=== PATIENT | female | born 1955 | race Caucasian/White ===

== ENCOUNTER 2016-07-26 18:10 | Inpatient (IN) ==
--- NOTE | 2016-07-26 19:25 | Emergency Department Note ---
Disposition Clinical Impression: Small bowel obstruction Crohns disease Qualifiers: Gastrointestinal tract location: small intestine Digestive disease complication type: unspecified complication Qualified Code(s): K50.019 - Crohn' s disease of small intestine with unspecified complications Disposition: Admitted As Inpatient Condition: Fair Referrals: Olu Mata DO [Primary Care Provider] - Forms: Work/School Release, ED Satisfaction Letter Time of Disposition: 21:02 Abdominal Pain HPI - General Chief Complaint: ED Abdominal Pain Stated Complaint: LLQ abdominal pain, vomiting Time Seen by Provider: 07/26/16 19:21 Source: patient Mode of arrival: ambulatory Limitations: no limitations Nursing Notes Reviewed: Yes Vital Signs Reviewed: Yes - History of Present Illness HPI Narrative: 61-year-old female history of Crohn's disease, takes Humira, also is a previous hemicolectomy, with no colostomy bag, this was done in the , patient states with severe left lower quadrant pain 9 out of 10, crampy and nonradiating. This started about an hour ago. Patient states that she has not had any relief of her symptoms, she has been obstipated since yesterday. Patient denies fever chills, she states that she lost and hospitalized for a C. difficile infection requiring fecal transplantation approximately 3 or 4 years ago, patient denies dysuria hematuria, has a history of cholecystectomy, total hysterectomy, appendectomy. colectomy. Pt Subjective Complaint: abdominal pain Onset (ago): day(s) (1) Consistency: Worsening Location: diffuse, LLQ Pain Severity: severe Pain Scale: 8 Quality: cramping, aching Radiation: none Migration to: no migration Improves with: nothing Associated symptoms: Reports: nausea, vomiting, constipation (obstipation). Denies: diarrhea, fever, chills Treatments prior to arrival: none - Related Data Home Medications Medication Instructions Recorded Confirmed Adalimumab [Humira] 40 mg SQ Q2W 07/26/16 07/26/16 Aspirin Enteric Coated [Aspirin EC] 81 mg PO DAILY 07/26/16 07/26/16 Calcium Carbonate [Tums] 1,000 mg PO Q4HR PRN 07/26/16 07/26/16 Calcium Crb,Cit/D3/Min34/Noemí 2 each PO DAILY 07/26/16 07/26/16 [Citracal + Bone Density Tablet] Cholecalciferol (D-3) [Vitamin D] 1,000 unit PO DAILY 07/26/16 07/26/16 Cyanocobalamin (Vitamin B-12) 500 mcg PO DAILY 07/26/16 07/26/16 [Vitamin B-12] FLUoxetine HCl [PROzac] 30 mg PO HS 07/26/16 07/26/16 L. Acidophilus/Pectin, [place] 1 each PO DAILY 07/26/16 07/26/16 [Acidophilus Probiotic Capsule] Loperamide [Imodium] 2 mg PO HS 07/26/16 07/26/16 Multivitamin [Multi-Day Vitamins] 1 each PO DAILY 07/26/16 07/26/16 Ranitidine HCl [Acid Laboratory Tester] 150 mg PO HS 07/26/16 07/26/16 Vitamin B Complex [B Complex] 1 each PO DAILY 07/26/16 07/26/16 Allergies Allergy/AdvReac Type Severity Reaction Status Date / Time Sulfa (Sulfonamide Allergy Hives Verified 07/26/16 18:32 Antibiotics) All systems ED: reviewed and negative except as stated. Constitutional: Denies: fever, chills, weakness Cardiovascular: Denies: chest pain, palpitations Respiratory: Denies: cough, dyspnea Gastrointestinal: Reports: as per HPI, abdominal pain, nausea, vomiting Genitourinary: Denies: urgency, dysuria Musculoskeletal: Denies: back pain, neck pain Integumentary: Denies: rash, abrasion Neurological: Denies: headache, weakness Abdominal Pain PMH - Past Medical History Medical history: Reports: kidney stones Female Surgical History: Reports: Adenoidectomy, cholecystectomy, hysterectomy, Tonsillectomy, other FORENSIC MANAGER history: Reports: no FORENSIC MANAGER history Psychiatric history: Reports: depression - Social History Smoking status: Never smoker Alcohol use: Reports: none Drug use: Reports: none Physical Exam Constitutional: vital signs reviewed and wnl, patient looks moderately uncomfortable HEENT: NCAT, sclera anicteric, PERRLA bilaterally, normal external ears bilaterally, nasal septum nondeviated, average dentition, MMM Neck: normal inspection, neck is supple, trachea midline Resp: normal chest inspection, CTA bilaterally, no resp distress CV: RRR, no m/g/r GI: Moderate to severe LLQ tenderness to palpation, hypoactive bowel sounds, no peritoneal signs Back: normal inspection, no tenderness to palpation Neuro: A&O3, no gross motor or sensory deficits bilaterally MSK: normal inspection, bilateral UE and LE with normal ROM Skin: No rashes, skin warm, dry, intact - General Limitations: no limitations General appearance: alert, in no apparent distress Course Course Narrative: 61-year-old female with Crohn's disease, also has a previous colectomy, presenting with left lower quadrant pain, and obstipation 1 day, patient states that she has had symptoms like this before and has previous he had obstructions been in several years. As an concern for obstruction we will CT scan of abdomen without contrast basic lab work IV fluids and analgesics, antiemetics CBC BMP lactate, - Reevaluation(s) Reevaluation #1: I reevaluated the patient, she still is moderate pain however it is improved after morphine and Dilaudid, her CT scan shows evidence of small bowel obstruction with questionable transition point, we will place an NG tube to decompress the bowel place assessment lower nontender wall suction her lactate was not elevated, she will mild leukocytosis of 15.6, plan to admit to medicine service for decompression, questionable surgical consultation per hospitalist recgurvinder. Time: 21:01 - Consultations Consultation #1: Sergio consulted in ED, agrees with plan NG decompression, patient HD stable, she will eval in AM. Time: 21:40 Vital Signs Temperature 99.0 F 07/26/16 18:32 Pulse Rate 87 07/26/16 18:32 Respiratory Rate 16 07/26/16 18:32 Blood Pressure 137/93 07/26/16 18:32 O2 Sat by Pulse Oximetry 97 07/26/16 18:32 Temperature 99.0 F 07/26/16 18:32 Pulse Rate 82 07/26/16 19:37 Respiratory Rate 16 07/26/16 19:37 Blood Pressure 129/95 07/26/16 19:37 O2 Sat by Pulse Oximetry 97 07/26/16 19:37 Oxygen Delivery Oxygen Delivery Room Air Abdominal Pain - Differential Diagnosis Differential Diagnosis: Likely: abdominal pain non-specific, acute appendicitis - Medical Records Medical records reviewed: Yes I reviewed the patient's medical records. - Lab Data Lab results reviewed: Yes I reviewed the patient's lab results. Result diagrams: 07/26/16 19:37 07/26/16 19:37 Lab Results 07/26/16 07/26/16 07/26/16 Range/Units 19:27 19:37 19:37 WBC 15.6 H (4.3-11.1) K/mcL RBC 5.03 H (3.82-4.97) M/mcL Hgb 15.0 (11.5-15.4) g/dL Hct 44.3 (35.3-44.9) % MCV 88.1 (83.0-100.0) fL MCH 29.8 (28.0-33.3) pg MCHC 33.9 (31.6-35.5) g/dL RDW 12.7 (11.5-14.5) % Plt Count 365 (140-400) K/mcL MPV 10.7 (9.4-12.4) fL Immature Gran % 0.4 (0-4) % Seg Neutrophils % 72.0 % Lymphocytes % 21.2 % Monocytes % 5.4 % Eosinophils % 0.6 % Basophils % 0.4 % Neutrophils # 11.2 H (1.6-8.9) K/mcL Lymphocytes # 3.3 (0.6-4.6) K/mcL Monocytes # 0.8 (0.0-1.3) K/mcL Eosinophils # 0.1 (0.0-0.6) K/mcL Basophils # 0.1 (0.0-0.2) K/mcL Sodium 141 (136-145) mEq/L Potassium 4.2 (3.5-4.5) mEq/L Chloride 101 (98-109) mEq/L Carbon Dioxide 26 (19-29) mEq/L BUN 13 (7-20) mg/dL Creatinine 0.82 (0.57-1.11) mg/dL Est GFR ( Amer) > 60 (> 60) Est GFR (Non-Af Amer) > 60 (> 60) BUN/Creatinine Ratio 16 (6-26) Glucose 118 H (70-99) mg/dL Calculated Osmolality 293 (280-300) Lactic Acid (0.5-2.2) mmol/L Calcium 10.3 (8.6-10.8) mg/dL Total Bilirubin 0.7 (0.2-1.2) mg/dL Direct Bilirubin 0.3 (0.0-0.5) mg/dL Indirect Bilirubin 0.4 (0.0-1.2) mg/dL AST 27 (5-34) Units/L ALT 26 (0-55) Units/L Alkaline Phosphatase 67 (38-126) Units/L Serum Total Protein 8.3 (6.0-8.3) g/dL Albumin 4.0 (3.5-5.0) g/dL Globulin 4.3 H (2.4-3.5) g/dL Albumin/Globulin Ratio 0.9 L (1.1-2.2) Amylase 76 (25-125) Units/L Lipase 16 (8-78) Units/L Urine Color Yellow (Yellow) Urine Clarity Hazy A (Clear) Urine pH 7.0 (5.0-8.0) pH Units Ur Specific [place] 1.019 (1.010-1.025) Urine Protein Negative (Neg-Trace) mg/dL Urine Glucose (UA) Normal (Normal) mg/dL Urine Ketones Negative (Negative) mg/dL Urine Blood Negative (Negative) Urine Nitrite Negative (Negative) Urine Bilirubin Negative (Negative) Urine Urobilinogen Normal (Normal) mg/dL Ur Leukocyte Esterase Trace H (Negative) Urine Microscopic RBC 0-3 (0-3) per hpf Urine Microscopic WBC 0-3 (0-3) per hpf Ur Squamous Epith Cells Moderate H (None-Few) per lpf Urine Bacteria None Seen (None-Few) per hpf Hyaline Casts None Seen (None-Few) per lpf Ur Culture Indicated? YES A (NO) 07/26/16 Range/Units 19:55 WBC (4.3-11.1) K/mcL RBC (3.82-4.97) M/mcL Hgb (11.5-15.4) g/dL Hct (35.3-44.9) % MCV (83.0-100.0) fL MCH (28.0-33.3) pg MCHC (31.6-35.5) g/dL RDW (11.5-14.5) % Plt Count (140-400) K/mcL MPV (9.4-12.4) fL Immature Gran % (0-4) % Seg Neutrophils % % Lymphocytes % % Monocytes % % Eosinophils % % Basophils % % Neutrophils # (1.6-8.9) K/mcL Lymphocytes # (0.6-4.6) K/mcL Monocytes # (0.0-1.3) K/mcL Eosinophils # (0.0-0.6) K/mcL Basophils # (0.0-0.2) K/mcL Sodium (136-145) mEq/L Potassium (3.5-4.5) mEq/L Chloride (98-109) mEq/L Carbon Dioxide (19-29) mEq/L BUN (7-20) mg/dL Creatinine (0.57-1.11) mg/dL Est GFR ( Amer) (> 60) Est GFR (Non-Af Amer) (> 60) BUN/Creatinine Ratio (6-26) Glucose (70-99) mg/dL Calculated Osmolality (280-300) Lactic Acid 1.4 (0.5-2.2) mmol/L Calcium (8.6-10.8) mg/dL Total Bilirubin (0.2-1.2) mg/dL Direct Bilirubin (0.0-0.5) mg/dL Indirect Bilirubin (0.0-1.2) mg/dL AST (5-34) Units/L ALT (0-55) Units/L Alkaline Phosphatase (38-126) Units/L Serum Total Protein (6.0-8.3) g/dL Albumin (3.5-5.0) g/dL Globulin (2.4-3.5) g/dL Albumin/Globulin Ratio (1.1-2.2) Amylase (25-125) Units/L Lipase (8-78) Units/L Urine Color (Yellow) Urine Clarity (Clear) Urine pH (5.0-8.0) pH Units Ur Specific [place] (1.010-1.025) Urine Protein (Neg-Trace) mg/dL Urine Glucose (UA) (Normal) mg/dL Urine Ketones (Negative) mg/dL Urine Blood (Negative) Urine Nitrite (Negative) Urine Bilirubin (Negative) Urine Urobilinogen (Normal) mg/dL Ur Leukocyte Esterase (Negative) Urine Microscopic RBC (0-3) per hpf Urine Microscopic WBC (0-3) per hpf Ur Squamous Epith Cells (None-Few) per lpf Urine Bacteria (None-Few) per hpf Hyaline Casts (None-Few) per lpf Ur Culture Indicated? (NO) - Radiology Data Radiology results reviewed: Yes I reviewed the patient's radiology results. Abdomen/Pelvis CT 07/26/16 19:38 IMPRESSION: Multiple dilated loops of small bowel with air-fluid levels and a possible transition point in the right lower quadrant, near bowel anastomotic sutures, concerning for a mechanical small bowel obstruction. The colon is decompressed with scattered areas of wall submucosal fat deposition. Submucosal fat deposition can be an incidental finding versus sequela of chronic colonic inflammation. Otherwise no evidence of acute colonic abnormality. D/ : / 07/26/2016 20:44:11 Ernesto Shankar MD / Evelyn Drew Interpreting Provider: Ernesto Shankar MD - EKG Data EKG attestation: Yes I reviewed and interpreted this EKG. EKG shows normal: sinus rhythm (77 bpm IN [address] segment elevations or depressions) Rate: normal Rhythm: NSR Interpretation: no acute changes - Core Measures AMI Core Measures Followed: No Measure Exclusions: not indicated Attestation Statement - Attestation Attestation: I examined this patient and my medical decision-making was reviewed with the TRANSPORTATION MANAGER/PA/Advanced Practice Nurse/Resident Physician. I agree with the documented findings, disposition and treatment plan as described except to the extent set forth below. [id number] time provided Lower quadrant abdominal pain. History of Crohn's. Uncomfortable appearing on exam
[2016-07-26] MEDS ORDERED: Ondansetron 4 MG/2 ML VIAL IVP ONE ×2 (19:38→21:20)
[2016-07-26] MEDS ORDERED: *HR* Morphine 2 MG/ML SYRINGE IVP ONE (19:38)
[2016-07-26] MEDS ORDERED: 0.9 % Sodium Chloride 500 ML IVC ONE (19:39)
[2016-07-26 19:41] LABS: Bilirubin,Urine Negative (Negative); Blood,Urine Negative (Negative); Color,Urine Yellow (Yellow); Glucose,Urine (UA) Normal (Normal); Ketones,Urine Negative (Negative); Leukocyte Esterase,Urine Trace (Negative); Nitrite,Urine Negative (Negative); Protein,Urine Negative (Neg-Trace); Specific Gravity,Urine 1.019 (1.010-1.025); Urobilinogen,Urine Normal (Normal)
[2016-07-26 19:43] LABS: Bacteria,Urine None Seen per hpf (None-Few); Clarity,Urine Hazy (Clear); Hyaline Casts,Urine None Seen per lpf (None-Few); RBC,Urine 0-3 per hpf (0-3); Squamous Epithelial Cell,Urine Moderate per lpf (None-Few); WBC,Urine 0-3 per hpf (0-3)
[2016-07-26 19:46] LABS: Basophils # 0.1 K/mcL (0.0-0.2); Basophils % 0.4 %; Eosinophils # 0.1 K/mcL (0.0-0.6); Eosinophils % 0.6 %; Hematocrit 44.3 % (35.3-44.9); Immature Granulocytes % 0.4 % (0-4); Lymphocytes # 3.3 K/mcL (0.6-4.6); Lymphocytes % 21.2 %; Mean Corpuscular HGB Conc 33.9 g/dL (31.6-35.5); Mean Corpuscular Hemoglobin 29.8 pg (28.0-33.3); Mean Corpuscular Volume 88.1 fL (83.0-100.0); Mean Platelet Volume 10.7 fL (9.4-12.4); Monocytes # 0.8 K/mcL (0.0-1.3); Monocytes % 5.4 %; Neutrophils # 11.2 K/mcL (1.6-8.9); Platelet Count 365 K/mcL (140-400); Red Blood Count 5.03 M/mcL (3.82-4.97); Red Cell Distribution Width 12.7 % (11.5-14.5)
[2016-07-26 20:01] LABS: Alanine Aminotransferase 26 Units/L (0-55); Albumin/Globulin Ratio 0.9 (1.1-2.2); Alkaline Phosphatase 67 Units/L (38-126); Amylase 76 Units/L (25-125); Aspartate Amino Transferase 27 Units/L (5-34); BUN/Creatinine Ratio 16 (6-26); Bilirubin,Direct 0.3 mg/dL (0.0-0.5); Bilirubin,Indirect 0.4 mg/dL (0.0-1.2); Bilirubin,Total 0.7 mg/dL (0.2-1.2); Blood Urea Nitrogen 13 mg/dL (7-20); Calcium 10.3 mg/dL (8.6-10.8); Carbon Dioxide 26 mEq/L (19-29); Chloride 101 mEq/L (98-109); Globulin 4.3 g/dL (2.4-3.5); Glucose 118 mg/dL (70-99); Lipase 16 Units/L (8-78); Osmolality,Calculated 293 (280-300); Potassium 4.2 mEq/L (3.5-4.5); Sodium 141 mEq/L (136-145); Total Protein 8.3 g/dL (6.0-8.3); eGFR For African Americans > 60 (> 60); eGFR For Non-African Americans > 60 (> 60)
[2016-07-26] MEDS ORDERED: *HR* HYDROmorphone (PF) 1 MG/ML SYRINGE IVP ONE ×2 (20:18→21:36)
[2016-07-26] MEDS ORDERED: Ondansetron 4 MG/2 ML VIAL IVP PRN (22:04)
[2016-07-26] MEDS ORDERED: Naloxone 0.4 MG/ML INJ IVP PRN (22:04)
[2016-07-26] MEDS ORDERED: *HR* Morphine 2 MG/ML SYRINGE IVP PRN ×2 (22:06→23:58)
[2016-07-27] MEDS: *HR* Heparin 5,000 UNIT/ML VIAL SQ SCH ×3 (00:12→17:03)
[2016-07-27] MEDS ORDERED: Metoclopramide 10 MG/2 ML VIAL IVP PRN (00:40)
[2016-07-27] MEDS ORDERED: Chloraseptic Spray 177 ML BOTTLE MM PRN (00:40)
--- NOTE | 2016-07-27 00:44 | Internal Med History&Physical ---
Date of Encounter: 07/27/16 Time of Encounter: 00:42 Assessment and Plan (1) Small bowel obstruction Current visit: Yes Status: Acute Patient presents with sudden onset abdominal pain associated with nausea, vomiting and inability to pass gas and bowel movements. On exam, patient has feeble bowel sounds and tenderness to palpation diffusely. CT scan reveals small bowel obstruction. Patient admitted to inpatient status. Expected to be in the hospital for at least 2 midnights. Expected discharge disposition is to home. High risk due to risk of possible need for surgical intervention if the patient does not resolve with conservative management. Patient had NG tube placed in the emergency room which is connected to suction. Surgery has been contacted by emergency room. We will follow surgical recommendations. Continue NG to suction. Intravenous proton inhibitor and intravenous fluids. Pain control. Conservative management and monitoring closely. (2) Crohns disease Current visit: Yes Status: Chronic As mentioned above, conservative management for her bowel obstruction. Outpatient follow-up with her drip box tender for continued Humira injections. Qualifiers: Gastrointestinal tract location: small intestine Digestive disease complication type: with intestinal obstruction Qualified Code(s): K50.012 - Crohn's disease of small intestine with intestinal obstruction Internal Medicine - H&P: HPI Chief complaint: Abdominal pain Admitted From: Emergency Dept Plans for Post Hospital Care: Home History of present illness: Ms. Poole is a 61 year old female who presented to the emergency room due to abdominal pain, nausea and vomiting. Patient states that she was at her baseline health on 07/25/2016. On the night of 07/25/2016, the patient started developing abdominal pain that was 10/10 in intensity in the left side of the abdomen without any radiation that was squeezing in nature. No aggravating or relieving factors. This is associated with nausea, vomiting. Patient's last bowel movement was on 07/25/2016 at night. She states that since then, she has not had any further bowel movements or has not passed any gas. Currently, she can use to complain of 8/10 pain in the abdomen that is only resolved with Dilaudid but not with morphine. She can use to report nausea and some dry heaves currently. She denies any fever or chills. She denies any chest pain, shortness of breath, palpitations, cough or wheezing. She denies any bruising or rashes, changes in her weight or appetite recently. She is under the care of drip box tender at [facility] where she receives biweekly Humira for her Crohn's disease. Past Med Surg Social Fam HX - Past Medical History Attestation: Yes The following information was validated with the patient. Source: patient Medical history: kidney stones, other (Crohn's disease) Psychiatric history: depression - Past Surgical History Surgical History: cholecystectomy, colectomy - Social History Smoking Status: Former smoker Smokeless Tobacco Status: No Alcohol use: none Drug use: none Current living situation: Home, With Family Activity Level: Independent ambulation Recent Out of Country Travel Within the Last 8 Weeks: No Exposure or Possible Exposure to Illness During Travel: No - Additional Family History Additional family history: Reviewed; not pertinent Internal Medicine - H&P: Meds Adalimumab [Humira] 40 mg SQ Q2W 07/26/16 [History] Aspirin Enteric Coated [Aspirin EC] 81 mg PO DAILY 07/26/16 [History] Calcium Carbonate [Tums] 1,000 mg PO Q4HR PRN 07/26/16 [History] Calcium Crb,Cit/D3/Min34/Noemí [Citracal + Bone Density Tablet] 2 each PO DAILY 07/26/16 [History] Cholecalciferol (D-3) [Vitamin D] 1,000 unit PO DAILY 07/26/16 [History] Cyanocobalamin (Vitamin B-12) [Vitamin B-12] 500 mcg PO DAILY 07/26/16 [History] FLUoxetine HCl [PROzac] 30 mg PO HS 07/26/16 [History] L. Acidophilus/Pectin, [place] [Acidophilus Probiotic Capsule] 1 each PO DAILY [History] Loperamide [Imodium] 2 mg PO HS 07/26/16 [History] Multivitamin [Multi-Day Vitamins] 1 each PO DAILY 07/26/16 [History] Ranitidine HCl [Acid [employer] Lead] 150 mg PO HS 07/26/16 [History] Vitamin B Complex [B Complex] 1 each PO DAILY 07/26/16 [History] Allergies Sulfa (Sulfonamide Antibiotics) Allergy (Verified 07/26/16 18:32) Hives All Systems PM: A 10-system review of systems was performed and is negative for pertinent findings except as documented above in the HPI. Review of systems: 10 systems have been reviewed and are negative except as mentioned in the history of present illness - Constitutional Vitals: Temp Pulse Resp BP Pulse Ox 98.0 F 71 18 148/90 95 07/26/16 23:37 07/26/16 23:37 07/26/16 23:37 07/26/16 23:37 07/26/16 23:37 Exam: Gen.: Lying in bed. Moderate to severe distress. Eyes: Pupils equal, round and reactive to light. Extraocular muscles intact. ENT: Moist mucous membranes. No oropharyngeal erythema or discharge. Chest: Clear to auscultation bilaterally. No adventitious sounds present. CVS: First and second heart sounds present. No murmurs, rubs or gallops. Abdomen: Soft, diffusely tender to palpation, nondistended. Bowel sounds present but are very feeble. Skin: No decubitus ulcers appreciated. POSTAL SERVICE MAIL PROCESSOR: No focal neuro deficits present. Psychiatric: Alert, awake and oriented to time, place and person. Lymphatic system: No lymphadenopathy appreciated Internal Med - H&P Results - Labs CBC & Chem 7: 07/26/16 19:37 07/26/16 19:37 - Diagnostic Studies CT scan - abdomen Status: image reviewed by me (Multiple dilated loops of small bowel with air- fluid levels and a possible transition point in the right lower quadrant concerning for small bowel obstruction)
[2016-07-27] MEDS ORDERED: D5% in 0.9% NACL 1,000 ML IVC SCH ×2 (00:45→11:12)
[2016-07-27] MEDS: *HR* HYDROmorphone (PF) 1 MG/ML SYRINGE IVP PRN ×3 (01:45→21:23)
[2016-07-27 07:24] LABS: Basophils % 0.3 %; Hematocrit 42.6 % (35.3-44.9); Hemoglobin 14.3 g/dL (11.5-15.4); Immature Granulocytes % 0.5 % (0-4); Lymphocytes # 1.7 K/mcL (0.6-4.6); Lymphocytes % 11.1 %; Mean Corpuscular HGB Conc 33.6 g/dL (31.6-35.5); Mean Corpuscular Hemoglobin 29.8 pg (28.0-33.3); Mean Corpuscular Volume 88.8 fL (83.0-100.0); Mean Platelet Volume 11.1 fL (9.4-12.4); Monocytes # 0.4 K/mcL (0.0-1.3); Monocytes % 2.7 %; Neutrophils # 13.2 K/mcL (1.6-8.9); Platelet Count 332 K/mcL (140-400); Red Cell Distribution Width 12.7 % (11.5-14.5); Segmented Neutrophils % 85.4 %
[2016-07-27] MEDS: Pantoprazole 40 MG VIAL IVP SCH (09:23)
[2016-07-27 09:34] LABS: Alanine Aminotransferase 20 Units/L (0-55); Albumin 3.3 g/dL (3.5-5.0); Albumin/Globulin Ratio 0.8 (1.1-2.2); Alkaline Phosphatase 58 Units/L (38-126); Aspartate Amino Transferase 19 Units/L (5-34); BUN/Creatinine Ratio 22 (6-26); Bilirubin,Total 0.7 mg/dL (0.2-1.2); Blood Urea Nitrogen 18 mg/dL (7-20); Calcium 9.2 mg/dL (8.6-10.8); Carbon Dioxide 25 mEq/L (19-29); Chloride 104 mEq/L (98-109); Glucose 155 mg/dL (70-99); Osmolality,Calculated 293 (280-300); Potassium 4.3 mEq/L (3.5-4.5); Sodium 139 mEq/L (136-145); Total Protein 7.3 g/dL (6.0-8.3); eGFR For African Americans > 60 (> 60); eGFR For Non-African Americans > 60 (> 60)
[2016-07-27 10:05] LABS: Hemoglobin A1C 5.2 %
--- NOTE | 2016-07-27 11:03 | General Surgery Consult Note ---
Date of Encounter: 07/27/16 Time of Encounter: 10:45 Assessment and Plan (1) Small bowel obstruction Current Visit: Yes Status: Acute Continue with conservative measures including: Bowel rest- patient may have one cup of ice chips per shift NG tube to low intermittent wall suction IV fluids Supportive care and pain control Serial abdominal exams Surgery will continue to follow and assess patient's progress (2) Crohns disease Current Visit: Yes Status: Chronic Qualifiers: Gastrointestinal tract location: small intestine Digestive disease complication type: with intestinal obstruction Qualified Code(s): K50.012 - Crohn's disease of small intestine with intestinal obstruction (3) DVT prophylaxis Current Visit: Yes Status: Acute Continue heparin 5000 units subcutaneous 3 times a day for DVT prophylaxis History of Present Illness Consult date: 07/27/16 Reason for consult: other (SBO) Requesting physician: Nicolás Pike History of present illness: Ms. Poole is a 61 year old female who presented to the emergency department with complaints of abdominal pain with associated nausea and vomiting. She reports that she has had symptoms for the last 24 hours. She states that her abdominal pain is diffuse. Denies any aggravating or alleviating factors She denies having pain like this in the past. She admits to bloating with nausea which started yesterday morning as well. She reports multiple episodes of vomiting. Denies any hematemesis or coffee-ground emesis. She states that her last bowel movement was yesterday morning. She does report decreased caliber of her stool. She states that she typically has a bowel movement 6-8 times per day. She states she has been unable to pass flatus for the last 24 hours. She reports that this is very atypical for her. The patient does report rectal bleeding but she feels this is related to her hemorrhoids.She states that she had a colonoscopy complete [address] Keys at [facility]. 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 She denies any fevers or chills. Denies any shortness of breath or chest pain. She denies any difficulty with urination however she states that her urine is darker than typical and she is voiding less than typical for her. She states that she did have a hemicolectomy 30 years ago but denies having any major surgical intervention since that time. Past Med Surg Social Fam HX - Past Medical History Source: patient Medical history: kidney stones, other (Crohn's disease) Psychiatric history: depression - Past Surgical History Surgical History: cholecystectomy, colectomy (right hemicolectomy) - Social History Smoking Status: Former smoker Smokeless Tobacco Status: No Alcohol use: none Drug use: none Current living situation: Home - Independent Activity Level: Independent ambulation Medications and Allergies Adalimumab [Humira] 40 mg SQ Q2W 07/26/16 [History] Aspirin Enteric Coated [Aspirin EC] 81 mg PO DAILY 07/26/16 [History] Calcium Carbonate [Tums] 1,000 mg PO Q4HR PRN 07/26/16 [History] Calcium Crb,Cit/D3/Min34/Noemí [Citracal + Bone Density Tablet] 2 each PO DAILY 07/26/16 [History] Cholecalciferol (D-3) [Vitamin D] 1,000 unit PO DAILY 07/26/16 [History] Cyanocobalamin (Vitamin B-12) [Vitamin B-12] 500 mcg PO DAILY 07/26/16 [History] FLUoxetine HCl [PROzac] 30 mg PO HS 07/26/16 [History] L. Acidophilus/Pectin, [place] [Acidophilus Probiotic Capsule] 1 each PO DAILY [History] Loperamide [Imodium] 2 mg PO HS 07/26/16 [History] Multivitamin [Multi-Day Vitamins] 1 each PO DAILY 07/26/16 [History] Ranitidine HCl [Acid Test Engine Evaluator] 150 mg PO HS 07/26/16 [History] Vitamin B Complex [B Complex] 1 each PO DAILY 07/26/16 [History] Allergies Sulfa (Sulfonamide Antibiotics) Allergy (Verified 07/26/16 18:32) Hives Review of Systems All systems PM: reviewed and no additional remarkable complaints except as stated (in HPI) All systems PM: A 10-system review of systems was performed and is negative for pertinent findings except as documented above in the HPI. General Surgery Exam Initial Vital Signs Temp Pulse Resp BP Pulse Ox 99.0 F 87 16 137/93 97 07/26/16 18:32 07/26/16 18:32 07/26/16 18:32 07/26/16 18:32 07/26/16 18:32 - General physical appearance well developed, well nourished, no distress, moderate pain - Eyes normal ocular movement - ENT dry mucosa, atraumatic, normocephalic - Neck trachea midline - Respiratory normal respiratory effort, clear to auscultation - Cardiovascular Cardiovascular exam: Present: RRR - Abdomen Abdomen general surgery: Present: bowel sounds present, soft, tender, wound (NG tube to low intermittent wall suction with bilious drainage noted (410 mL's noted since placement)) Abdominal Tenderness: Present: diffusely - Integumentary Integumentary general surgery: Present: warm and dry - Neurologic Present: CN 2-12 grossly intact - Psychiatric Psychiatric general surgery: Present: appropriate, oriented to person, oriented to place, oriented to time, speech is normal, memory intact Exam Initial Vital Signs Temp Pulse Resp BP Pulse Ox 99.0 F 87 16 137/93 97 07/26/16 18:32 07/26/16 18:32 07/26/16 18:32 07/26/16 18:32 07/26/16 18:32 Results - Labs 07/27/16 06:46 07/27/16 08:59 Abnormal lab results WBC 15.4 K/mcL (4.3-11.1) H 07/27/16 06:46 Neutrophils # 13.2 K/mcL (1.6-8.9) H 07/27/16 06:46 Glucose 155 mg/dL (70-99) H 07/27/16 08:59 POC Glucose 170 (58-89) H 07/26/16 23:44 Albumin 3.3 g/dL (3.5-5.0) L 07/27/16 08:59 Globulin 4.0 g/dL (2.4-3.5) H 07/27/16 08:59 Albumin/Globulin Ratio 0.8 (1.1-2.2) L 07/27/16 08:59 Urine Clarity Hazy (Clear) A 07/26/16 19:27 Ur Leukocyte Esterase Trace (Negative) H 07/26/16 19:27 Ur Squamous Epith Cells Moderate per lpf (None-Few) H 07/26/16 19:27 Ur Culture Indicated? YES (NO) A 07/26/16 19:27 Diabetes panel 07/27/16 07/27/16 Range/Units 06:46 08:59 Sodium 139 (136-145) mEq/L Potassium 4.3 (3.5-4.5) mEq/L Chloride 104 (98-109) mEq/L Carbon Dioxide 25 (19-29) mEq/L BUN 18 (7-20) mg/dL Creatinine 0.81 (0.57-1.11) mg/dL Glucose 155 H (70-99) mg/dL Hemoglobin A1c 5.2 ( - 5.6) % Calcium 9.2 (8.6-10.8) mg/dL AST 19 (5-34) Units/L ALT 20 (0-55) Units/L Alkaline Phosphatase 58 (38-126) Units/L Albumin 3.3 L (3.5-5.0) g/dL Calcium panel 07/27/16 Range/Units 08:59 Calcium 9.2 (8.6-10.8) mg/dL Albumin 3.3 L (3.5-5.0) g/dL Pituitary panel 07/27/16 Range/Units 08:59 Sodium 139 (136-145) mEq/L Potassium 4.3 (3.5-4.5) mEq/L Chloride 104 (98-109) mEq/L Carbon Dioxide 25 (19-29) mEq/L BUN 18 (7-20) mg/dL Creatinine 0.81 (0.57-1.11) mg/dL Glucose 155 H (70-99) mg/dL Calcium 9.2 (8.6-10.8) mg/dL Adrenal panel 07/27/16 Range/Units 08:59 Sodium 139 (136-145) mEq/L Potassium 4.3 (3.5-4.5) mEq/L Chloride 104 (98-109) mEq/L Carbon Dioxide 25 (19-29) mEq/L BUN 18 (7-20) mg/dL Creatinine 0.81 (0.57-1.11) mg/dL Glucose 155 H (70-99) mg/dL Calcium 9.2 (8.6-10.8) mg/dL Total Bilirubin 0.7 (0.2-1.2) mg/dL AST 19 (5-34) Units/L ALT 20 (0-55) Units/L Alkaline Phosphatase 58 (38-126) Units/L Albumin 3.3 L (3.5-5.0) g/dL All other labs normal. - Imaging CT scan - abdomen: report reviewed CT scan - pelvis: report reviewed Additional studies: Abdomen/Pelvis CT 07/26/16 19:38 IMPRESSION: Multiple dilated loops of small bowel with air-fluid levels and a possible transition point in the right lower quadrant, near bowel anastomotic sutures, concerning for a mechanical small bowel obstruction. The colon is decompressed with scattered areas of wall submucosal fat deposition. Submucosal fat deposition can be an incidental finding versus sequela of chronic colonic inflammation. Otherwise no evidence of acute colonic abnormality. D/ : / 07/26/2016 20:44:11 Ernesto Shankar MD / Evelyn Drew Interpreting Provider: Ernesto Shankar MD Consult Discharge Plan - Plan Referrals: Olu Mata DO [Primary Care Provider] - - Attending Attestation I examined this patient and my medical decision-making was reviewed with the DIRECT SERVICE WORKER/PA/Advanced Practice Nurse/Resident Physician. I agree with the documented findings, disposition and treatment plan as described except to the extent set forth below.
[2016-07-27] MEDS ORDERED: *HR* Promethazine 25 MG/ML VIAL IVP PRN (11:35)
[2016-07-27] MEDS ORDERED: Lidocaine Viscous Oral Soln 15 ML SOLUTION MM PRN (12:29)
[2016-07-27] MEDS ORDERED: Saline Nasal Spray 44 ML BOTTLE NS PRN (12:32)
[2016-07-27] MEDS: *HR* LORazepam 2 MG/ML VIAL IVP SCH ×2 (12:53→21:02)
[2016-07-27] MEDS: D5% in 0.9% NACL w KCl 20 MEQ/1,000 ML MLS IVC SCH ×2 (12:53→21:11)
--- NOTE | 2016-07-27 16:53 | Internal Med Progress Note ---
Date of Encounter: 07/27/16 Time of Encounter: 16:51 - Assessment and plan (1) Small bowel obstruction Current Visit: Yes Status: Acute (2) Crohns disease Current Visit: Yes Status: Chronic Qualifiers: Gastrointestinal tract location: small intestine Digestive disease complication type: with intestinal obstruction Qualified Code(s): K50.012 - Crohn's disease of small intestine with intestinal obstruction (3) DVT prophylaxis Current Visit: Yes Status: Acute - Subjective Interval history: Mr. Vale Poole is a 61-year-old female admitted for small bowel obstruction. She has history of Crohn's disease and 30 years ago she had a small bowel obstruction. Surgery is consulted on the case. At this time it is decided to treat it conservatively with IV fluid NG tube suction and pain medication. She denies any other complaint. DVT prophylaxis includes SCD. 4 diabetes Accu-Chek 4 times a day with sliding scale coverage. - Constitutional Vitals: Temp Pulse Resp BP Pulse Ox 98.8 F 77 17 130/74 95 07/27/16 14:50 07/27/16 14:50 07/27/16 14:50 07/27/16 14:50 07/27/16 14:50 - Head Head exam: Present: atraumatic, normocephalic - Eye Eye exam: Present: PERRL, conjuntiva pink, sclera anicteric Pupils: Present: PERRL - Neck Neck exam general surgery: Present: supple, trachea midline. Absent: lymphadenopathy - Respiratory Respiratory exam: Present: CTAB. Absent: accessory muscle use, rales, rhonchi, wheezes - Cardiovascular Cardiovascular exam: Present: RRR, +S1, +S2. Absent: diastolic murmur, gallop, rubs, systolic murmur - GI/Abdominal GI/Abdominal exam: Present: diminished bowel sounds, distended, soft, no peritoneal signs. Absent: tenderness - Extremities Exam Extremities exam: Present: warm, radial pulses palpable and symetrical. Absent : calf tenderness, cyanotic, pedal edema - Neurological Exam Neurological exam: Present: CN II-XII intact, oriented X3, no focal deficits. Absent: pronater drift, facial droop, speech deficit - Skin Skin exam: Present: dry, intact Internal Medicine: Result - Labs CBC & Chem 7: 07/27/16 06:46 07/27/16 08:59 Labs: Short CBC 07/27/16 Range/Units 06:46 WBC 15.4 H (4.3-11.1) K/mcL Hgb 14.3 (11.5-15.4) g/dL Hct 42.6 (35.3-44.9) % Plt Count 332 (140-400) K/mcL Neutrophils # 13.2 H (1.6-8.9) K/mcL BMP 07/27/16 08:59 Sodium 139 Potassium 4.3 Chloride 104 Carbon Dioxide 25 BUN 18 Creatinine 0.81 Glucose 155 H Calcium 9.2 Liver Function 07/27/16 Range/Units 08:59 Total Bilirubin 0.7 (0.2-1.2) mg/dL AST 19 (5-34) Units/L ALT 20 (0-55) Units/L Alkaline Phosphatase 58 (38-126) Units/L Albumin 3.3 L (3.5-5.0) g/dL - Impressions Impressions KUB X-Ray 07/27/16 11:33 IMPRESSION: NG tube in place with its tip in the fundus of the stomach and side hole in the region of the GE junction. D/ / 07/27/2016 12:13:07 Praveen Burroughs MD / jose m Interpreting Provider: Praveen Burroughs MD Consult Discharge Plan - Plan Referrals: Olu Mata DO [Primary Care Provider] -
--- NOTE | 2016-07-27 17:51 | Electrocardiograph Report ---
[place] [id number] Test Date: 2016-07-26 Pat Name: Yuly Poole Department: 105 Room: 3A36 Gender: F Strap Buckler: : 1955 Requested By: Nicolás Pike Order Number: [id number] Reading MD: Segundo Willis MD Measurements Intervals Doyle Rate: 77 P: 12 VT: 112 QRS: -31 QRSD: 89 T: 42 QT: 390 QTc: 422 Interpretive Statements SINUS RHYTHM WITH SHORT VT INTERVAL MARKED LEFT AXIS DEVIATION Electronically Signed On 07-27-2016 17:50:09 EDT by Segundo Willis MD
[2016-07-27] MEDS: Ondansetron 4 MG/2 ML VIAL IVP PRN (18:36)
[2016-07-28] MEDS: *HR* Heparin 5,000 UNIT/ML VIAL SQ SCH ×4 (00:30→23:21)
[2016-07-28] MEDS: *HR* HYDROmorphone (PF) 1 MG/ML SYRINGE IVP PRN ×4 (00:30→21:54)
[2016-07-28] MEDS: *HR* LORazepam 2 MG/ML VIAL IVP SCH (03:19)
[2016-07-28 04:27] LABS: Basophils % 0.2 %; Eosinophils # 0.1 K/mcL (0.0-0.6); Eosinophils % 0.4 %; Hematocrit 40.6 % (35.3-44.9); Hemoglobin 12.8 g/dL (11.5-15.4); Immature Granulocytes % 0.4 % (0-4); Lymphocytes # 3.2 K/mcL (0.6-4.6); Lymphocytes % 23.6 %; Mean Corpuscular HGB Conc 31.5 g/dL (31.6-35.5); Mean Corpuscular Hemoglobin 29.2 pg (28.0-33.3); Mean Corpuscular Volume 92.5 fL (83.0-100.0); Mean Platelet Volume 10.6 fL (9.4-12.4); Monocytes # 1.1 K/mcL (0.0-1.3); Neutrophils # 9.2 K/mcL (1.6-8.9); Platelet Count 283 K/mcL (140-400); Red Blood Count 4.39 M/mcL (3.82-4.97); Red Cell Distribution Width 12.8 % (11.5-14.5); Segmented Neutrophils % 67.4 %
[2016-07-28 04:49] LABS: Alanine Aminotransferase 14 Units/L (0-55); Albumin 2.9 g/dL (3.5-5.0); Albumin/Globulin Ratio 0.8 (1.1-2.2); Alkaline Phosphatase 46 Units/L (38-126); Aspartate Amino Transferase 15 Units/L (5-34); BUN/Creatinine Ratio 27 (6-26); Bilirubin,Total 0.5 mg/dL (0.2-1.2); Blood Urea Nitrogen 21 mg/dL (7-20); Calcium 8.1 mg/dL (8.6-10.8); Carbon Dioxide 27 mEq/L (19-29); Chloride 112 mEq/L (98-109); Globulin 3.5 g/dL (2.4-3.5); Glucose 127 mg/dL (70-99); Osmolality,Calculated 301 (280-300); Potassium 4.4 mEq/L (3.5-4.5); Sodium 143 mEq/L (136-145); Total Protein 6.4 g/dL (6.0-8.3); eGFR For African Americans > 60 (> 60); eGFR For Non-African Americans > 60 (> 60)
[2016-07-28] MEDS: D5% in 0.9% NACL w KCl 20 MEQ/1,000 ML MLS IVC SCH (07:02)
[2016-07-28] MEDS: Ondansetron 4 MG/2 ML VIAL IVP PRN (07:07)
[2016-07-28] MEDS: Pantoprazole 40 MG VIAL IVP SCH (09:25)
--- NOTE | 2016-07-28 13:05 | Discharge Summary ---
Date of Encounter: 07/29/16 Time of Encounter: 13:00 - Discharge Diagnosis (1) Small bowel obstruction Priority: Primary Status: Acute (2) Crohns disease Priority: Secondary Status: Chronic Qualifiers: Gastrointestinal tract location: small intestine Digestive disease complication type: with intestinal obstruction Qualified Code(s): K50.012 - Crohn's disease of small intestine with intestinal obstruction (3) DVT prophylaxis Priority: Secondary Status: Acute (4) UTI (urinary tract infection) Priority: Secondary Status: Acute Qualifiers: Qualified Code(s): N39.0 - Urinary tract infection, site not specified - Discharge Medications Prescriptions: Ciprofloxacin [Cipro] 500 mg PO BID #14 tablet Docusate [Colace] 100 mg PO BID #60 capsule Home Medications: Adalimumab [Humira] 40 mg SQ Q2W 07/26/16 [History] Aspirin Enteric Coated [Aspirin EC] 81 mg PO DAILY 07/26/16 [History] Calcium Carbonate [Tums] 1,000 mg PO Q4HR PRN 07/26/16 [History] Calcium Crb,Cit/D3/Min34/Noemí [Citracal + Bone Density Tablet] 2 each PO DAILY 07/26/16 [History] Cholecalciferol (D-3) [Vitamin D] 1,000 unit PO DAILY 07/26/16 [History] Cyanocobalamin (Vitamin B-12) [Vitamin B-12] 500 mcg PO DAILY 07/26/16 [History] FLUoxetine HCl [Prozac] 30 mg PO HS 07/26/16 [History] L. Acidophilus/Pectin, [place] [Acidophilus Probiotic Capsule] 1 each PO DAILY [History] Multivitamin [Multi-Day Vitamins] 1 each PO DAILY 07/26/16 [History] Ranitidine HCl [Acid Non Profit Financial Controller] 150 mg PO HS 07/26/16 [History] Vitamin B Complex [B Complex] 1 each PO DAILY 07/26/16 [History] Acetaminophen [Tylenol] 650 mg PO Q6HR PRN #0 tablet 07/28/16 [Rx] Docusate [Colace] 100 mg PO BID #60 capsule 07/28/16 [Rx] Ciprofloxacin [Cipro] 500 mg PO BID #14 tablet 07/29/16 [Rx] Omeprazole [PriLOSEC] 20 mg PO DAILY@0630 #30 capsule. 07/29/16 [Rx] Allergies/Adverse Reactions: Allergies Sulfa (Sulfonamide Antibiotics) Allergy (Verified 07/26/16 18:32) Hives Date of admission: 07/26/16 22:06 Primary care physician: Olu Mata Consults: 07/27/16 00:41 Consult to Refuse Laborer [CONS] Routine Reason for SW Consult: Health care proxy 07/27/16 11:47 Consult to Respiratory Therapy [CONS] Routine Reason for Consult: Sleep apnea- evaluate for CPAP while in the hospital; patient wears a mask at home. Time Notified: 11:48 Call Completed: No Discharging clinician: Kristian Ramos Anticipated date of discharge: 07/29/16 - Patient Status Disposition: Home, Self-Care Functional capacity at discharge: independent ambulation - Discharge Instructions Follow Up With: Olu Mata, [Primary Care Provider] - - Diet and Activity Activity: increase activity as tolerated Diet: advance to your usual diet Interval History: Patient is 61-year-old came with a small bowel obstruction. She had similar episode 5 years ago. She has history of Crohn's disease. She was treated conservatively with the IV fluids and NG tube suction. She had 2 bowel movements last night and her abdominal examination shows a very soft belly with positive bowel tones. She has been started on clear liquids and tolerated well. She was kept overnight and has been tolerating full diet asked to take soft diet. Discussed with surgery and agreeable to discharge. Her urine culture showed Escherichia coli sensitive to Cipro therefore Cipro as started for 10 days. Hospital course: Ms. Poole is a 61 year old female - Time Spent with Patient Total time spent providing and/or coordinating discharge services: Greater than 30 minutes - Constitutional Vitals: Temp Pulse Resp BP Pulse Ox 98.7 F 69 16 142/77 96 07/28/16 10:21 07/28/16 10:21 07/28/16 10:21 07/28/16 10:07/28/16 10:21 - Head Head exam: Present: atraumatic, normocephalic - Eye Eye exam: Present: PERRL, conjuntiva pink, sclera anicteric Pupils: Present: PERRL - Neck Neck exam general surgery: Present: supple, trachea midline. Absent: lymphadenopathy - Respiratory Respiratory exam: Present: CTAB. Absent: accessory muscle use, rales, rhonchi, wheezes - Cardiovascular Cardiovascular exam: Present: RRR, +S1, +S2. Absent: diastolic murmur, gallop, rubs, systolic murmur - GI/Abdominal GI/Abdominal exam: Present: normal bowel sounds, soft, no peritoneal signs. Absent: distended, tenderness - Extremities Exam Extremities exam: Present: warm, radial pulses palpable and symetrical. Absent : calf tenderness, cyanotic, pedal edema - Neurological Exam Neurological exam: Present: CN II-XII intact, oriented X3, no focal deficits. Absent: pronater drift, facial droop, speech deficit - Skin Skin exam: Present: dry, intact
--- NOTE | 2016-07-28 14:24 | General Surgery Progress Note ---
<Klarissa Garibay Ginny - Last Filed: 07/28/16 14:22> Date of Encounter: 07/28/16 Time of Encounter: 14:00 - Assessment and Plan (1) Small bowel obstruction Status: Acute Continue with conservative measures including: Remove NG tube Clear liquids Saline lock per hospitalist Supportive care and pain control Serial abdominal exams Surgery will continue to follow and assess patient's progress (2) Crohns disease Status: Chronic Qualifiers: Gastrointestinal tract location: small intestine Digestive disease complication type: with intestinal obstruction Qualified Code(s): K50.012 - Crohn's disease of small intestine with intestinal obstruction (3) DVT prophylaxis Status: Acute Continue heparin 5000 units subcutaneous 3 times a day for DVT prophylaxis Subjective Patient reports: no new complaints, feels better, tolerating liquids well, voiding w/o difficulty, flatus, bowel movement, diarrhea, afebrile Objective Vital Signs - Last 8 Hours Temp Pulse Resp BP Pulse Ox 07/28/16 10:21 98.7 F 69 16 142/77 96 07/28/16 06:57 98.6 F 69 17 123/74 95 Intake and Output 07/27/16 07/28/16 07/28/16 23:59 07:59 15:59 Intake Total 1000 / 1000 1000 / 1000 0 / 0 Output Total 0 / 0 400 / 400 500 / 500 Balance 1000 / 1000 600 / 600 -500 / -500 Intake: IV Fluids 1000 / 1000 1000 / 1000 KCl 20mEq in D5-0.9 NaCl 1000 / 1000 1000 / 1000 20 meq In 1,000 ml @ 125 mls/hr IVC .Q8H [facility] Rx#: [id number] Oral 0 / 0 0 / 0 0 / 0 Output: Urine 0 / 0 400 / 400 250 / 250 Gastric Drainage 250 / 250 Other: Meal NPO NPO Stool Size Small Stool Consistency loose liquid Stool Color Brown Blood Glucose* 131 117 - General physical appearance well developed, well nourished, no distress - Eyes normal ocular movement - ENT normal mucosa, atraumatic, normocephalic - Neck Neck exam: trachea midline - Respiratory normal respiratory effort, clear to auscultation - Cardiovascular Cardiovascular exam: Present: RRR - Abdomen Abdomen: Present: bowel sounds present, soft, non tender, wound (NG tube to LIWS (bilious drainage noted)) - Integumentary no rash, no growths, no abnormal pigmentation - Neurologic CN 2-12 grossly intact - Musculoskeletal normal gait, normal posture - Psychiatric oriented to time, oriented to person, oriented to place, speech is normal, memory intact - Labs 07/28/16 04:10 07/28/16 04:10 Diabetes panel 07/28/16 Range/Units 04:10 Sodium 143 (136-145) mEq/L Potassium 4.4 (3.5-4.5) mEq/L Chloride 112 H (98-109) mEq/L Carbon Dioxide 27 (19-29) mEq/L BUN 21 H (7-20) mg/dL Creatinine 0.77 (0.57-1.11) mg/dL Glucose 127 H (70-99) mg/dL Calcium 8.1 L (8.6-10.8) mg/dL AST 15 (5-34) Units/L ALT 14 (0-55) Units/L Alkaline Phosphatase 46 (38-126) Units/L Albumin 2.9 L (3.5-5.0) g/dL Calcium panel 07/28/16 Range/Units 04:10 Calcium 8.1 L (8.6-10.8) mg/dL Albumin 2.9 L (3.5-5.0) g/dL Pituitary panel 07/28/16 Range/Units 04:10 Sodium 143 (136-145) mEq/L Potassium 4.4 (3.5-4.5) mEq/L Chloride 112 H (98-109) mEq/L Carbon Dioxide 27 (19-29) mEq/L BUN 21 H (7-20) mg/dL Creatinine 0.77 (0.57-1.11) mg/dL Glucose 127 H (70-99) mg/dL Calcium 8.1 L (8.6-10.8) mg/dL Adrenal panel 07/28/16 Range/Units 04:10 Sodium 143 (136-145) mEq/L Potassium 4.4 (3.5-4.5) mEq/L Chloride 112 H (98-109) mEq/L Carbon Dioxide 27 (19-29) mEq/L BUN 21 H (7-20) mg/dL Creatinine 0.77 (0.57-1.11) mg/dL Glucose 127 H (70-99) mg/dL Calcium 8.1 L (8.6-10.8) mg/dL Total Bilirubin 0.5 (0.2-1.2) mg/dL AST 15 (5-34) Units/L ALT 14 (0-55) Units/L Alkaline Phosphatase 46 (38-126) Units/L Albumin 2.9 L (3.5-5.0) g/dL Consult Discharge Plan - Plan Referrals: Olu Mata DO [Primary Care Provider] - 08/02/16 4:00 pm Prescriptions: Ciprofloxacin [Cipro] 500 mg PO BID #14 tablet Docusate [Colace] 100 mg PO BID #60 capsule - Attending Attestation I examined this patient and my medical decision-making was reviewed with the SECURITY CLERK/PA/Advanced Practice Nurse/Resident Physician. I agree with the documented findings, disposition and treatment plan as described except to the extent set forth below. <Jody Vega - Last Filed: 07/31/16 12:53> Date of Encounter: 07/28/16 Time of Encounter: 12:00 - Assessment and Plan (1) Small bowel obstruction Status: Acute patient states she has been at a summer camp for two weeks and has been eating salad at least once per day - lots of ruffage passing flatus and had at least 2 diarrhea bm's, ok dc ngt and start clears (2) Crohns disease Status: Chronic Qualifiers: Gastrointestinal tract location: small intestine Digestive disease complication type: with intestinal obstruction Qualified Code(s): K50.012 - Crohn's disease of small intestine with intestinal obstruction Subjective Patient reports: no new complaints, feels better, tolerating liquids well, voiding w/o difficulty, flatus, bowel movement Objective - General physical appearance well developed, well nourished, no distress - Eyes normal ocular movement - ENT normal mucosa, normocephalic - Respiratory normal respiratory effort, clear to auscultation - Cardiovascular Cardiovascular exam: Present: RRR, no murmurs/rubs/gallops - Abdomen Abdomen: Present: bowel sounds present, soft, non tender - Integumentary no rash, no growths - Neurologic CN 2-12 grossly intact - Musculoskeletal normal posture - Psychiatric oriented to time, memory intact - Labs 07/29/16 06:00 07/29/16 06:00 - Attending Attestation I examined this patient and my medical decision-making was reviewed with the SECURITY CLERK/PA/Advanced Practice Nurse/Resident Physician. I agree with the documented findings, disposition and treatment plan as described except to the extent set forth below.
[2016-07-28] MEDS ORDERED: FLUoxetine HCl 10 MG CAPSULE PO SCH (21:00)
[2016-07-28] MEDS: Acetaminophen 325 MG TABLET PO PRN (21:54)
[2016-07-29] MEDS: Acetaminophen 325 MG TABLET PO PRN (04:24)
[2016-07-29 06:32] LABS: Basophils # 0.1 K/mcL (0.0-0.2); Basophils % 0.6 %; Eosinophils # 0.2 K/mcL (0.0-0.6); Eosinophils % 1.7 %; Hematocrit 35.5 % (35.3-44.9); Hemoglobin 11.6 g/dL (11.5-15.4); Immature Granulocytes % 0.3 % (0-4); Lymphocytes # 4.2 K/mcL (0.6-4.6); Lymphocytes % 40.3 %; Mean Corpuscular HGB Conc 32.7 g/dL (31.6-35.5); Mean Corpuscular Hemoglobin 29.9 pg (28.0-33.3); Mean Corpuscular Volume 91.5 fL (83.0-100.0); Mean Platelet Volume 11.1 fL (9.4-12.4); Monocytes # 0.6 K/mcL (0.0-1.3); Monocytes % 6.1 %; Neutrophils # 5.3 K/mcL (1.6-8.9); Platelet Count 247 K/mcL (140-400); Red Blood Count 3.88 M/mcL (3.82-4.97); Red Cell Distribution Width 12.7 % (11.5-14.5)
[2016-07-29 06:45] LABS: Alanine Aminotransferase 13 Units/L (0-55); Albumin 2.8 g/dL (3.5-5.0); Albumin/Globulin Ratio 0.8 (1.1-2.2); Alkaline Phosphatase 47 Units/L (38-126); Aspartate Amino Transferase 16 Units/L (5-34); BUN/Creatinine Ratio 20 (6-26); Bilirubin,Total 0.7 mg/dL (0.2-1.2); Blood Urea Nitrogen 13 mg/dL (7-20); Calcium 8.1 mg/dL (8.6-10.8); Carbon Dioxide 27 mEq/L (19-29); Chloride 107 mEq/L (98-109); Globulin 3.4 g/dL (2.4-3.5); Glucose 96 mg/dL (70-99); Osmolality,Calculated 288 (280-300); Potassium 3.6 mEq/L (3.5-4.5); Sodium 139 mEq/L (136-145); Total Protein 6.2 g/dL (6.0-8.3); eGFR For African Americans > 60 (> 60); eGFR For Non-African Americans > 60 (> 60)
[2016-07-29] MEDS: *HR* Heparin 5,000 UNIT/ML VIAL SQ SCH (09:03)
[2016-07-29] MEDS: *HR* HYDROmorphone (PF) 1 MG/ML SYRINGE IVP PRN (09:04)
[2016-07-29] MEDS: Pantoprazole 40 MG VIAL IVP SCH (09:04)
--- NOTE | 2016-07-29 09:27 | General Surgery Consult Note ---
<Klarissa Garibay - Last Filed: 07/29/16 09:36> Date of Encounter: 07/27/16 Time of Encounter: 10:45 Assessment and Plan (1) Small bowel obstruction Status: Acute Continue with conservative measures including: Bowel rest- patient may have one cup of ice chips per shift NG tube to low intermittent wall suction IV fluids Supportive care and pain control Serial abdominal exams Surgery will continue to follow and assess patient's progress (2) Crohns disease Status: Chronic Qualifiers: Gastrointestinal tract location: small intestine Digestive disease complication type: with intestinal obstruction Qualified Code(s): K50.012 - Crohn's disease of small intestine with intestinal obstruction (3) DVT prophylaxis Status: Acute Continue heparin 5000 units subcutaneous 3 times a day for DVT prophylaxis History of Present Illness Consult date: 07/27/16 Reason for consult: other (SBO) Requesting physician: Nicolás Pike History of present illness: Ms. Poole is a 61 year old female who presented to the emergency department with complaints of abdominal pain with associated nausea and vomiting. She reports that she has had symptoms for the last 24 hours. She states that her abdominal pain is diffuse. Denies any aggravating or alleviating factors She denies having pain like this in the past. She admits to bloating with nausea which started yesterday morning as well. She reports multiple episodes of vomiting. Denies any hematemesis or coffee-ground emesis. She states that her last bowel movement was yesterday morning. She does report decreased caliber of her stool. She states that she typically has a bowel movement 6-8 times per day. She states she has been unable to pass flatus for the last 24 hours. She reports that this is very atypical for her. The patient does report rectal bleeding but she feels this is related to her hemorrhoids.She states that she had a colonoscopy complete [address] Keys at [facility]. 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 She denies any fevers or chills. Denies any shortness of breath or chest pain. She denies any difficulty with urination however she states that her urine is darker than typical and she is voiding less than typical for her. She states that she did have a hemicolectomy 30 years ago but denies having any major surgical intervention since that time. Past Med Surg Social Fam HX - Past Medical History Source: patient Medical history: GERD, kidney stones, other (Crohn's disease, sleep apnea) Psychiatric history: depression - Past Surgical History Surgical History: appendectomy, cholecystectomy, colectomy (right hemicolectomy) , hysterectomy (DOUGIE/BSO), other (T&A) - Social History Smoking Status: Former smoker Smokeless Tobacco Status: No Alcohol use: none Drug use: none - Family History Mother Living Status: Age at : 69 Hx Family Cancer: Yes (stomach cancer) Father Living Status: Age at : 80 Cause of : pulmonary embolism Medications and Allergies Adalimumab [Humira] 40 mg SQ Q2W 07/26/16 [History] Aspirin Enteric Coated [Aspirin EC] 81 mg PO DAILY 07/26/16 [History] Calcium Carbonate [Tums] 1,000 mg PO Q4HR PRN 07/26/16 [History] Calcium Crb,Cit/D3/Min34/Noemí [Citracal + Bone Density Tablet] 2 each PO DAILY 07/26/16 [History] Cholecalciferol (D-3) [Vitamin D] 1,000 unit PO DAILY 07/26/16 [History] Cyanocobalamin (Vitamin B-12) [Vitamin B-12] 500 mcg PO DAILY 07/26/16 [History] FLUoxetine HCl [Prozac] 30 mg PO HS 07/26/16 [History] L. Acidophilus/Pectin, [place] [Acidophilus Probiotic Capsule] 1 each PO DAILY [History] Multivitamin [Multi-Day Vitamins] 1 each PO DAILY 07/26/16 [History] Ranitidine HCl [Acid Slot Tag Inserter] 150 mg PO HS 07/26/16 [History] Vitamin B Complex [B Complex] 1 each PO DAILY 07/26/16 [History] Acetaminophen [Tylenol] 650 mg PO Q6HR PRN #0 tablet 07/28/16 [Rx] Docusate [Colace] 100 mg PO BID #60 capsule 07/28/16 [Rx] Ciprofloxacin [Cipro] 500 mg PO BID #14 tablet 07/29/16 [Rx] Omeprazole [PriLOSEC] 20 mg PO DAILY@0630 #30 capsule. 07/29/16 [Rx] Allergies Sulfa (Sulfonamide Antibiotics) Allergy (Verified 07/26/16 18:32) Hives Review of Systems All systems PM: reviewed and no additional remarkable complaints except as stated (in the HPI) All systems PM: A 10-system review of systems was performed and is negative for pertinent findings except as documented above in the HPI. General Surgery Exam Initial Vital Signs Temp Pulse Resp BP Pulse Ox 99.0 F 87 16 137/93 97 07/26/16 18:32 07/26/16 18:32 07/26/16 18:32 07/26/16 18:32 07/26/16 18:32 - General physical appearance well developed, well nourished, no distress, moderate pain - Eyes normal ocular movement - ENT normal mucosa, atraumatic, normocephalic - Neck trachea midline - Respiratory normal respiratory effort, clear to auscultation - Cardiovascular Cardiovascular exam: Present: RRR - Abdomen Abdomen general surgery: Present: bowel sounds present, soft, tender, wound (NG tube to LIWS with bilious drainage noted (410mls noted since placement)) - Integumentary Integumentary general surgery: Present: warm and dry - Neurologic Present: CN 2-12 grossly intact - Psychiatric Psychiatric general surgery: Present: appropriate, oriented to person, oriented to place, oriented to time, speech is normal, memory intact Exam Initial Vital Signs Temp Pulse Resp BP Pulse Ox 99.0 F 87 16 137/93 97 07/26/16 18:32 07/26/16 18:32 07/26/16 18:32 07/26/16 18:32 07/26/16 18:32 Results - Labs 07/29/16 06:00 07/29/16 06:00 Abnormal lab results POC Glucose 117 (58-89) H 07/28/16 05:37 Calcium 8.1 mg/dL (8.6-10.8) L 07/29/16 06:00 Albumin 2.8 g/dL (3.5-5.0) L 07/29/16 06:00 Albumin/Globulin Ratio 0.8 (1.1-2.2) L 07/29/16 06:00 Urine Clarity Hazy (Clear) A 07/26/16 19:27 Ur Leukocyte Esterase Trace (Negative) H 07/26/16 19:27 Ur Squamous Epith Cells Moderate per lpf (None-Few) H 07/26/16 19:27 Ur Culture Indicated? YES (NO) A 07/26/16 19:27 Diabetes panel 07/29/16 Range/Units 06:00 Sodium 139 (136-145) mEq/L Potassium 3.6 (3.5-4.5) mEq/L Chloride 107 (98-109) mEq/L Carbon Dioxide 27 (19-29) mEq/L BUN 13 (7-20) mg/dL Creatinine 0.65 (0.57-1.11) mg/dL Glucose 96 (70-99) mg/dL Calcium 8.1 L (8.6-10.8) mg/dL AST 16 (5-34) Units/L ALT 13 (0-55) Units/L Alkaline Phosphatase 47 (38-126) Units/L Albumin 2.8 L (3.5-5.0) g/dL Calcium panel 07/29/16 Range/Units 06:00 Calcium 8.1 L (8.6-10.8) mg/dL Albumin 2.8 L (3.5-5.0) g/dL Pituitary panel 07/29/16 Range/Units 06:00 Sodium 139 (136-145) mEq/L Potassium 3.6 (3.5-4.5) mEq/L Chloride 107 (98-109) mEq/L Carbon Dioxide 27 (19-29) mEq/L BUN 13 (7-20) mg/dL Creatinine 0.65 (0.57-1.11) mg/dL Glucose 96 (70-99) mg/dL Calcium 8.1 L (8.6-10.8) mg/dL Adrenal panel 07/29/16 Range/Units 06:00 Sodium 139 (136-145) mEq/L Potassium 3.6 (3.5-4.5) mEq/L Chloride 107 (98-109) mEq/L Carbon Dioxide 27 (19-29) mEq/L BUN 13 (7-20) mg/dL Creatinine 0.65 (0.57-1.11) mg/dL Glucose 96 (70-99) mg/dL Calcium 8.1 L (8.6-10.8) mg/dL Total Bilirubin 0.7 (0.2-1.2) mg/dL AST 16 (5-34) Units/L ALT 13 (0-55) Units/L Alkaline Phosphatase 47 (38-126) Units/L Albumin 2.8 L (3.5-5.0) g/dL All other labs normal. - Imaging CT scan - abdomen: report reviewed CT scan - pelvis: report reviewed Additional studies: Abdomen/Pelvis CT 07/26/16 19:38 IMPRESSION: Multiple dilated loops of small bowel with air-fluid levels and a possible transition point in the right lower quadrant, near bowel anastomotic sutures, concerning for a mechanical small bowel obstruction. The colon is decompressed with scattered areas of wall submucosal fat deposition. Submucosal fat deposition can be an incidental finding versus sequela of chronic colonic inflammation. Otherwise no evidence of acute colonic abnormality. D/ / 07/26/2016 20:44:11 Ernesto Shankar MD / Evelyn Drew Interpreting Provider: Ernesto Shankar MD X-Ray 07/27/16 11:33 IMPRESSION: NG tube in place with its tip in the fundus of the stomach and side hole in the region of the GE junction. D/ / 07/27/2016 12:13:07 Praveen Burroughs MD / bannerjoana Interpreting Provider: Praveen Burroughs MD Consult Discharge Plan - Plan Referrals: Olu Mata DO [Primary Care Provider] - 08/02/16 4:00 pm Prescriptions: Ciprofloxacin [Cipro] 500 mg PO BID #14 tablet Docusate [Colace] 100 mg PO BID #60 capsule - Attending Attestation I examined this patient and my medical decision-making was reviewed with the PERSONAL FINANCIAL COUNSELOR/PA/Advanced Practice Nurse/Resident Physician. I agree with the documented findings, disposition and treatment plan as described except to the extent set forth below. <Jody Vega - Last Filed: 08/02/16 10:27> Date of Encounter: 07/27/16 Assessment and Plan (1) Small bowel obstruction Status: Acute plan conservative therapy currently, npo, ivfh, ngt decompression prn pain medication and antiemetics serial abdominal exams (2) Crohns disease Status: Chronic discussed CT results with patient and no inflammation at the area of narrowing which is right in front of the previous anastomosis, likely not due to Crohns Qualifiers: Gastrointestinal tract location: small intestine Digestive disease complication type: with intestinal obstruction Qualified Code(s): K50.012 - Crohn's disease of small intestine with intestinal obstruction History of Present Illness History of present illness: Patient has history of Crohns and has undergone right colectomy many years previously. She comes in after a day history of abdominal pain, diffuse and more so RLQ. She has had nausea and emesis, multiple episodes. She denies fevers , chills or night sweats. No flatus or bm for last 24 hrs, normally multiple looser stools per day due to her Crohns. Past Med Surg Social Fam HX - Past Medical History Medical history: other Review of Systems All systems PM: A 10-system review of systems was performed and is negative for pertinent findings except as documented above in the HPI. General Surgery Exam Initial Vital Signs Temp Pulse Resp BP Pulse Ox 99.0 F 87 16 137/93 97 07/26/16 18:32 07/26/16 18:32 07/26/16 18:32 07/26/16 18:32 07/26/16 18:32 - General physical appearance well developed, well nourished, no distress, moderate pain - Eyes PERRL, normal ocular movement - ENT normal mucosa, atraumatic - Neck trachea midline - Respiratory normal respiratory effort, clear to auscultation - Cardiovascular Cardiovascular exam: Present: RRR, no murmurs/rubs/gallops - Abdomen Abdomen general surgery: Present: bowel sounds present, soft, distended, tender. Absent: guarding, rebound, peritoneal Abdominal Tenderness: Present: diffusely - Integumentary Integumentary general surgery: Present: warm and dry, no abnormal pigmentation - Neurologic Present: CN 2-12 grossly intact - Musculoskeletal Present: normal gait, normal posture - Psychiatric Psychiatric general surgery: Present: A&Ox3, memory intact Exam Initial Vital Signs Temp Pulse Resp BP Pulse Ox 99.0 F 87 16 137/93 97 07/26/16 18:32 07/26/16 18:32 07/26/16 18:32 07/26/16 18:32 07/26/16 18:32 Results - Labs 07/29/16 06:00 07/29/16 06:00 Abnormal lab results POC Glucose 117 (58-89) H 07/28/16 05:37 Calcium 8.1 mg/dL (8.6-10.8) L 07/29/16 06:00 Albumin 2.8 g/dL (3.5-5.0) L 07/29/16 06:00 Albumin/Globulin Ratio 0.8 (1.1-2.2) L 07/29/16 06:00 Urine Clarity Hazy (Clear) A 07/26/16 19:27 Ur Leukocyte Esterase Trace (Negative) H 07/26/16 19:27 Ur Squamous Epith Cells Moderate per lpf (None-Few) H 07/26/16 19:27 Ur Culture Indicated? YES (NO) A 07/26/16 19:27 All other labs normal. - Imaging CT scan - abdomen: report reviewed, image reviewed CT scan - pelvis: report reviewed, image reviewed - Attending Attestation I examined this patient and my medical decision-making was reviewed with the PERSONAL FINANCIAL COUNSELOR/PA/Advanced Practice Nurse/Resident Physician. I agree with the documented findings, disposition and treatment plan as described except to the extent set forth below.
--- NOTE | 2016-07-29 09:39 | General Surgery Progress Note ---
<Klarissa Garibay Ginny - Last Filed: 07/29/16 09:36> Date of Encounter: 07/29/16 Time of Encounter: 09:20 - Assessment and Plan (1) Small bowel obstruction Current Visit: Yes Status: Acute Advance to full liquids Okay for discharge if the patient tolerates full liquids Patient may follow-up as needed Surgery will sign off at this time. Thank you for allowing us to participate in the care of this patient. Please call with any further questions or concerns. (2) Crohns disease Current Visit: Yes Status: Chronic Qualifiers: Gastrointestinal tract location: small intestine Digestive disease complication type: with intestinal obstruction Qualified Code(s): K50.012 - Crohn's disease of small intestine with intestinal obstruction (3) DVT prophylaxis Current Visit: Yes Status: Acute Continue heparin 5000 units subcutaneous 3 times a day for DVT prophylaxis Subjective Patient reports: no new complaints, still having pain (dull ache is LLQ improving), pain is less, tolerating liquids well, voiding w/o difficulty, flatus, bowel movement, diarrhea, afebrile Objective Vital Signs - Last 8 Hours Temp Pulse Resp BP Pulse Ox 07/29/16 07:21 98.3 F 65 17 115/70 96 07/29/16 03:14 98.3 F 68 16 109/66 93 Intake and Output 07/28/16 07/29/16 07/29/16 23:59 07:59 15:59 Intake Total 360 / 360 120 / 120 480 / 480 Output Total 0 / 0 0 / 0 Balance 360 / 360 120 / 120 480 / 480 Intake: Oral 360 / 360 120 / 120 480 / 480 Output: Urine 0 / 0 0 / 0 Other: Meal Dinner Breakfast # Voids 1 Weight 86.455 kg Patient Weight 07/29/16 23:59 Weight 86.455 kg - General physical appearance well developed, well nourished, no distress - Eyes normal ocular movement - ENT normal mucosa, atraumatic, normocephalic - Neck Neck exam: trachea midline - Respiratory normal respiratory effort, clear to auscultation - Cardiovascular Cardiovascular exam: Present: RRR - Abdomen Abdomen: Present: bowel sounds present, soft, non tender - Neurologic CN 2-12 grossly intact - Musculoskeletal normal gait, normal posture - Psychiatric oriented to time, oriented to person, oriented to place, speech is normal, memory intact - Labs 07/29/16 06:00 06/23/17 06:00 Diabetes panel 07/29/16 Range/Units 06:00 Sodium 139 (136-145) mEq/L Potassium 3.6 (3.5-4.5) mEq/L Chloride 107 (98-109) mEq/L Carbon Dioxide 27 (19-29) mEq/L BUN 13 (7-20) mg/dL Creatinine 0.65 (0.57-1.11) mg/dL Glucose 96 (70-99) mg/dL Calcium 8.1 L (8.6-10.8) mg/dL AST 16 (5-34) Units/L ALT 13 (0-55) Units/L Alkaline Phosphatase 47 (38-126) Units/L Albumin 2.8 L (3.5-5.0) g/dL Calcium panel 07/29/16 Range/Units 06:00 Calcium 8.1 L (8.6-10.8) mg/dL Albumin 2.8 L (3.5-5.0) g/dL Pituitary panel 07/29/16 Range/Units 06:00 Sodium 139 (136-145) mEq/L Potassium 3.6 (3.5-4.5) mEq/L Chloride 107 (98-109) mEq/L Carbon Dioxide 27 (19-29) mEq/L BUN 13 (7-20) mg/dL Creatinine 0.65 (0.57-1.11) mg/dL Glucose 96 (70-99) mg/dL Calcium 8.1 L (8.6-10.8) mg/dL Adrenal panel 07/29/16 Range/Units 06:00 Sodium 139 (136-145) mEq/L Potassium 3.6 (3.5-4.5) mEq/L Chloride 107 (98-109) mEq/L Carbon Dioxide 27 (19-29) mEq/L BUN 13 (7-20) mg/dL Creatinine 0.65 (0.57-1.11) mg/dL Glucose 96 (70-99) mg/dL Calcium 8.1 L (8.6-10.8) mg/dL Total Bilirubin 0.7 (0.2-1.2) mg/dL AST 16 (5-34) Units/L ALT 13 (0-55) Units/L Alkaline Phosphatase 47 (38-126) Units/L Albumin 2.8 L (3.5-5.0) g/dL Consult Discharge Plan - Plan Referrals: Olu Mata DO [Primary Care Provider] - Prescriptions: Ciprofloxacin [Cipro] 500 mg PO BID #14 tablet Docusate [Colace] 100 mg PO BID #60 capsule <Jody Vega - Last Filed: 07/29/16 13:47> Date of Encounter: 07/29/16 - Assessment and Plan (1) Small bowel obstruction Current Visit: Yes Status: Acute patient tolerating fulls well, may DORY from surgery standpoint spoke with patient regarding monitoring ruffage intake and peels from fruit, and nuts and doing in moderation she does not need to followup with me in the office for this we discussed that I do not feel this is related to Crohns as no inflammation was seen at the area on CT scan (2) Crohns disease Current Visit: Yes Status: Chronic Qualifiers: Gastrointestinal tract location: small intestine Digestive disease complication type: with intestinal obstruction Qualified Code(s): K50.012 - Crohn's disease of small intestine with intestinal obstruction Objective Vital Signs - Last 8 Hours Temp Pulse Resp BP Pulse Ox 07/29/16 11:39 98.4 F 86 17 110/69 98 07/29/16 07:21 98.3 F 65 17 115/70 96 Intake and Output 07/28/16 07/29/16 07/29/16 23:59 07:59 15:59 Intake Total 360 / 360 120 / 120 600 / 600 Output Total 0 / 0 0 / 0 Balance 360 / 360 120 / 120 600 / 600 Intake: Oral 360 / 360 120 / 120 600 / 600 Output: Urine 0 / 0 0 / 0 Other: Meal Dinner Breakfast # Voids 1 1 Weight 86.455 kg Patient Weight 07/29/16 23:59 Weight 86.455 kg - Labs 07/29/16 06:00 07/29/16 06:00 Diabetes panel 07/29/16 Range/Units 06:00 Sodium 139 (136-145) mEq/L Potassium 3.6 (3.5-4.5) mEq/L Chloride 107 (98-109) mEq/L Carbon Dioxide 27 (19-29) mEq/L BUN 13 (7-20) mg/dL Creatinine 0.65 (0.57-1.11) mg/dL Glucose 96 (70-99) mg/dL Calcium 8.1 L (8.6-10.8) mg/dL AST 16 (5-34) Units/L ALT 13 (0-55) Units/L Alkaline Phosphatase 47 (38-126) Units/L Albumin 2.8 L (3.5-5.0) g/dL Calcium panel 07/29/16 Range/Units 06:00 Calcium 8.1 L (8.6-10.8) mg/dL Albumin 2.8 L (3.5-5.0) g/dL Pituitary panel 07/29/16 Range/Units 06:00 Sodium 139 (136-145) mEq/L Potassium 3.6 (3.5-4.5) mEq/L Chloride 107 (98-109) mEq/L Carbon Dioxide 27 (19-29) mEq/L BUN 13 (7-20) mg/dL Creatinine 0.65 (0.57-1.11) mg/dL Glucose 96 (70-99) mg/dL Calcium 8.1 L (8.6-10.8) mg/dL Adrenal panel 07/29/16 Range/Units 06:00 Sodium 139 (136-145) mEq/L Potassium 3.6 (3.5-4.5) mEq/L Chloride 107 (98-109) mEq/L Carbon Dioxide 27 (19-29) mEq/L BUN 13 (7-20) mg/dL Creatinine 0.65 (0.57-1.11) mg/dL Glucose 96 (70-99) mg/dL Calcium 8.1 L (8.6-10.8) mg/dL Total Bilirubin 0.7 (0.2-1.2) mg/dL AST 16 (5-34) Units/L ALT 13 (0-55) Units/L Alkaline Phosphatase 47 (38-126) Units/L Albumin 2.8 L (3.5-5.0) g/dL - Attending Attestation I examined this patient and my medical decision-making was reviewed with the SECURITY ASSESSOR/PA/Advanced Practice Nurse/Resident Physician. I agree with the documented findings, disposition and treatment plan as described except to the extent set forth below.
[2016-07-29 11:40] VITALS: BP 110/69
--- NOTE | 2016-07-29 13:20 | Internal Med Progress Note ---
Date of Encounter: 07/29/16 Time of Encounter: 13:17 - Assessment and plan (1) Small bowel obstruction Current Visit: Yes Status: Acute (2) Crohns disease Current Visit: Yes Status: Chronic Qualifiers: Gastrointestinal tract location: small intestine Digestive disease complication type: with intestinal obstruction Qualified Code(s): K50.012 - Crohn's disease of small intestine with intestinal obstruction (3) DVT prophylaxis Current Visit: Yes Status: Acute (4) UTI (urinary tract infection) Current Visit: Yes Status: Acute Qualifiers: Qualified Code(s): N39.0 - Urinary tract infection, site not specified - Subjective Interval history: Mr. Vale Poole is a 61-year-old female admitted for small bowel obstruction. She has history of Crohn's disease and 30 years ago she had a small bowel obstruction. She was treated conservatively with NG tube suction and IV fluid and the obstruction resolved spontaneously. She has been having regular bowel movements and able to tolerate food. NG tube has been pulled out yesterday. Patient is ambulating. Discussed the surgery was agreeable to discharge the patient now. Urine culture positive for Escherichia coli which is sensitive to ciprofloxacin. DVT prophylaxis includes SCD. - Constitutional Vitals: Temp Pulse Resp BP Pulse Ox 98.4 F 86 17 110/69 98 07/29/16 11:39 07/29/16 11:39 07/29/16 11:39 07/29/16 11:39 07/29/16 11:39 - Head Head exam: Present: atraumatic, normocephalic - Eye Eye exam: Present: PERRL, conjuntiva pink, sclera anicteric Pupils: Present: PERRL - Neck Neck exam general surgery: Present: supple, trachea midline. Absent: lymphadenopathy - Respiratory Respiratory exam: Present: CTAB. Absent: accessory muscle use, rales, rhonchi, wheezes - Cardiovascular Cardiovascular exam: Present: RRR, +S1, +S2. Absent: diastolic murmur, gallop, rubs, systolic murmur - GI/Abdominal GI/Abdominal exam: Present: normal bowel sounds, soft, no peritoneal signs. Absent: distended, tenderness - Extremities Exam Extremities exam: Present: warm, radial pulses palpable and symetrical. Absent : calf tenderness, cyanotic, pedal edema - Neurological Exam Neurological exam: Present: CN II-XII intact, oriented X3, no focal deficits. Absent: pronater drift, facial droop, speech deficit - Skin Skin exam: Present: dry, intact Internal Medicine: Result - Labs CBC & Chem 7: 07/29/16 06:00 07/29/16 06:00 Labs: Short CBC 07/29/16 Range/Units 06:00 WBC 10.4 (4.3-11.1) K/mcL Hgb 11.6 (11.5-15.4) g/dL Hct 35.5 (35.3-44.9) % Plt Count 247 (140-400) K/mcL Neutrophils # 5.3 (1.6-8.9) K/mcL BMP 07/29/16 06:00 Sodium 139 Potassium 3.6 Chloride 107 Carbon Dioxide 27 BUN 13 Creatinine 0.65 Glucose 96 Calcium 8.1 L Liver Function 07/29/16 Range/Units 06:00 Total Bilirubin 0.7 (0.2-1.2) mg/dL AST 16 (5-34) Units/L ALT 13 (0-55) Units/L Alkaline Phosphatase 47 (38-126) Units/L Albumin 2.8 L (3.5-5.0) g/dL Consult Discharge Plan - Plan Referrals: Olu Mata DO [Primary Care Provider] - Prescriptions: Docusate [Colace] 100 mg PO BID #60 capsule
== END 2016-07-29 16:21 | disposition home or self-care (01) | DRG 386 ==
LOC: 3ANU 18:10 → EMEROO 18:10 → 3ANU 23:12
PROVIDERS: ADMIT Family Medicine; ATTEND Internal Medicine